=== PATIENT | female | born 1980 | race Caucasian/White ===

== ENCOUNTER 2016-10-11 12:28 | Emergency (ER) | payer MEDICAID ==
[~2016-10-11] VITALS: Wt 52.0 kg
[~2016-10-11 12:28] MED LIST: BUTA1CAP39 PO; CALC-67 PO; CEPH-443 PO; DICL50TA11 PO; FERR-55 PO; HYDR-3498 PO; MECL25TA2 PO; NAPR-260 PO; ONDA4TAB8 PO; PREN1TAB13 PO
[2016-10-11] MEDS ORDERED: SOD CHLORIDE 0.9% 1,000 ML IV STA (13:14)
[2016-10-11] MEDS ORDERED: ONDANSETRON 4 MG INJ IV STA (13:14)
[2016-10-11 13:36] LABS: URINE BLOOD (Dip) POC Trace-intact (NEGATIVE)
[2016-10-11] MEDS ORDERED: ONDA4TAB14 PO (13:47)
[2016-10-11] MEDS ORDERED: ACET325T33 PO (13:47)
--- NOTE | 2016-10-11 14:03 | ERD ---
ER Documentation Chief Complaint Date/Time DATE: 10/11/16 TIME: 13:56 Chief Complaint VOMITING ALL MORNING. NO AP NOW. HEADACHE WELL NO TRAUMA HPI This is a 35-year-old female with a history of migraines presenting to the emergency room complaining of headache and a few episodes of vomiting since this morning. Patient denies any abdominal pain. Patient denies any diarrhea. She denies any lethargy, vision changes. Patient describes the headache as frontal rating it moderate in severity. Patient states that she took sumatriptan at 830 this morning however she vomited the medication ROS All systems reviewed and are negative except as per history of present illness. Medications Home Meds Active Scripts Ondansetron (Ondansetron Odt) 4 Mg Tab.rapdis, 4 MG PO Q6H Y for NAUSEA AND/OR VOMITING, #20 TAB Prov:EDY GALVEZ PA-C 10/11/16 Acetaminophen* (Tylenol*) 325 Mg Tablet, 650 MG PO Q4H Y for MILD PAIN LEVEL 1-3 , #20 TAB Prov:EDY GALVEZ PA-C 10/11/16 Qiwlbwoezedky-Mmspsrmfwn-Fkqkzrez-Codeine* (Fioricet w/ Codeine*) [id number] 30MG Capsule, 1 CAP PO Q6H Y for PAIN LEVEL 1-5, #20 CAP Prov:MILLICENT WADE NP 06/22/16 Cephalexin* (Keflex*) 500 Mg Capsule, 500 MG PO QID for 7 Days, CAP Prov:DK DUEÑAS PA-C 04/22/16 Naproxen* (Naprosyn*) 500 Mg Tablet, 500 MG PO BID Y for PAIN AND/OR INFLAMMATION, #30 TAB Prov:DK DUEÑAS PA-C 02/16/16 Diclofenac Sodium* (Diclofenac Sodium*) 50 Mg Tablet.dr, 50 MG PO BID, #20 TAB Prov:GABRIEL HUYNH NP 12/21/15 Hydrocodone Bit-Acetaminophen* ([place]*) 5-325 Mg Tab, 1 TAB PO Q6 Y for PAIN, # 7 TAB Prov:JOAN CORTES DO 10/16/15 Naproxen* (Naprosyn*) 500 Mg Tablet, 500 MG PO BID Y for PAIN AND/OR INFLAMMATION, #14 TAB Prov:JOAN CORTES DO 10/16/15 Ondansetron Hcl* (Zofran*) 4 Mg Tablet, 4 MG PO Q8H Y for NAUSEA AND/OR VOMITING , #6 TAB Prov:JOAN CORTES DO 10/16/15 Meclizine Hcl* (Antivert*) 25 Mg Tablet, 25 MG PO Q6H Y for dizziness, vertigo, #20 TAB Prov:JOAN CORTES DO 10/16/15 Reported Medications Ferrous Sulfate* (Ferrous Sulfate*) 325 Mg Tablet, 325 MG PO DAILY, TAB 05/15/15 Calcium Carbonate/Vitamin D3* (Os-Ashutosh 500+D*) 1 Tab Tablet, 1 TAB PO DAILY, TAB 05/15/15 Vit-Iron Fumarate-FA ( Vitamins Tablet) 1 Tab Tablet, 1 TAB PO DAILY, TAB 02/24/15 Allergies Allergies: Coded Allergies: No Known Drug Allergies (Verified Allergy, Unknown, 02/16/16) PMhx/Soc History of Surgery: Yes () Anesthesia Reaction: No Hx Neurological Disorder: Yes (MIGRAINES) Hx Respiratory Disorders: No Hx Cardiac Disorders: No Hx Psychiatric Problems: No Hx Miscellaneous Medical Probl: No Hx Alcohol Use: No Hx Substance Use: No Hx Tobacco Use: No Physical Exam Vitals Vital Signs Date Time Temp Pulse Resp B/P Pulse Ox O2 Delivery O2 Flow Rate FiO2 10/11/16 12:43 98.6 82 20 104/57 100 Physical Exam GENERAL: well-developed/well-nourished, in no apparent distress, non-toxic appearing HENT: NC/AT, moist mucous membranes EYES: Conjunctiva normal NECK: Supple, no lymphadenopathy PULM: CTA bilaterally, no rales, rhonchi, or wheezing heard CV: Normal S1S2, RRR, good capillary refill GI: Soft, non-distended, non-tender to palpation Normal bowel sounds, no masses or organomegaly felt on exam No gross peritonitis, no bruits Negative Rovsing, negative Gonzales, negative McBurney's point, Negative CVAT BACK: No masses EXT: No clubbing, cyanosis, or edema NEURO: Alert and Orientated. Cranial nerves II to XII intact, normal gait and coronation SKIN: Intact, normal turgor PSYCH: Normal mood and mentation Results 24 hrs Laboratory Tests Test 10/11/16 13:38 Bedside Urine Blood Trace-intact Bedside Urine Glucose (UA) Negative Bedside Urine Ketones (LAB) 2+ Bedside Urine Leukocyte Esterase (L 1+ Bedside Urine Nitrite (LAB) Negative Bedside Urine Protein (LAB) 1+ Bedside Urine pH (LAB) 8.5 Current Medications Medications (Trade) Dose Ordered Sig/Anum Route PRN Reason Start Time Stop Time Status Last Admin Dose Admin Sodium Chloride (NS) 1,000 ml @ 1,000 mls/hr Q1H STAT IV 10/11/16 13:14 10/11/16 14:13 10/11/16 13:36 Ondansetron HCl (Zofran Inj) 4 mg ONCE STAT IV 10/11/16 13:14 10/11/16 13:16 DC 10/11/16 13:35 Procedures/MDM This is a 35-year-old female presenting to the emergency room complaining of a headache and vomiting since this morning. My differentials include but not limited to migraines, viral syndrome, Other differentials included tension, migraine, and cluster headache, overuse medication headache, subarachnoid hemorrhage, meningitis, stroke. IV access was established, patient was given Benadryl 1 L fluids and Zofran. Pain relief was given in the ED with some improvement. Neurology exam was normal and I don' t recommend a CT scan at this time. Patient did not have any abdominal exam, she was ambulating well and appears well. She is afebrile and has stable vital signs. she is hemodynamically stable and neurovascularly intact. Prescriptions were given. Discussed to follow up with a primary care physician in the next couple days. Return to the ER if condition worsens or not improving as expected. Patient agreed and understood this plan. Departure Diagnosis: Primary Impression: Vomiting Vomiting type: unspecified Vomiting Intractability: intractable Nausea presence: without nausea Qualified Code: R11.11 - Intractable vomiting without nausea, unspecified vomiting type Additional Impression: Headache Headache type: unspecified Headache chronicity pattern: acute headache Intractability: intractable Qualified Code: R51 - Acute intractable headache , unspecified headache type Condition: Stable Patient Instructions: Self-Care for Headaches, Diet, Vomiting Or Diarrhea [6Yr- Adult], Vomiting And Diarrhea, Nonspecific (Adult) Referrals: [facility] Usted se sweet hecho un examen mdico de control que le indica que no est en lauren condicin que requiera tratamiento urgente en el Departamento de Emergencia. Un estudio ms profundo y el tratamiento de jordan condicin pueden esperar sin ningn riesgo hasta que usted sea atendida/o en el consultorio de jordan mdico o lauren cl karol. Es responsabilidad suya arreglar lauren rober para el seguimiento del stephanie. MANEJO DE CONDICIONES NO URGENTES EN EL FUTURO 1) Si usted tiene un mdico de atencin primaria: Usted debera llamar a jordan mdico de atencin primaria antes de venir al departamento de emergencia. Despus de las horas de consultorio, jordan doctor o jordan asociado/a est disponible por telfono. El mdico o enfermero de erika en el servicio telefnico puede asesorarle por clay medio para atender el problema, o stephanie contrario se puede programar lauren rober. 2) Si usted no tiene un mdico de atencin primaria: Llame al mdico o clnica de referencia que aparece abajo chantale las horas de consultorio para hacer lauren rober para que le vean. CLINICAS: [facility] [phone] [facility] [phone] [facility] [phone] [address] [facility] [facility] [phone] [address] [facility] [place] [id number] [phone] [facility]. [phone] [address] Additional Instructions: Visite a jordan mdico maana para un EXAMEN.Regrese a estas instalaciones si no se mejora tamiko esperbamos o tamiko le dijimos. Bogata toda la medicina alice y tamiko se le indic. Regrese a estas instalaciones si no se mejora tamiko esperbamos o tamiko le dijimos. EDY GALVEZ PA-C Oct 11, 2016 14:03
[2016-10-11 14:35] VITALS: BP 93/52; PULSE 83; RESP 16; TEMP 98.1
== END 2016-10-11 14:37 | disposition home or self-care (01) ==
LOC: FTE 12:28
DX: R11.11 Vomiting without nausea (principal); R51 Headache
CPT/HCPCS: 36415; 81003; 96361; 96374; J2405; J7030; Z7502

== ENCOUNTER 2017-01-08 21:05 | Emergency (ER) | payer MEDICAID ==
[~2017-01-08] VITALS: Wt 54.0 kg
[~2017-01-08 21:05] MED LIST changes: +ACET325T33 PO; +ONDA4TAB14 PO
[2017-01-08] MEDS ORDERED: ONDANSETRON (ODT) 4 MG TAB ODT STA (23:23)
[2017-01-08] MEDS ORDERED: HYDROCODONE/APAP (5/325) TAB PO ONE (23:30)
[2017-01-08 23:42] LABS: URINE BLOOD (Dip) POC Trace-intact (NEGATIVE)
[2017-01-08 23:50] LABS: ADD SCAN DIFF NO
[2017-01-08 23:52] LABS: BASOPHIL # 0.1 10^3/ul (0.0-0.1); BASOPHILS % 0.7 % (0.0-2.0); EOSINOPHILS # 0.3 10^3/ul (0.0-0.5); EOSINOPHILS % 3.1 % (0.0-7.0); HEMATOCRIT 39.6 % (37.0-47.0); HEMOGLOBIN 13.2 g/dl (12.0-16.0); LYMPHOCYTES # 3.4 10^3/ul (0.8-2.9); LYMPHOCYTES % 39.5 % (15.0-51.0); MEAN CORPUSCULAR HEMOGLOBIN 30.8 pg (29.0-33.0); MEAN CORPUSCULAR HGB CONC 33.3 g/dl (32.0-37.0); MEAN CORPUSCULAR VOLUME 92.5 fl (82.0-101.0); MONOCYTE # 0.6 10^3/ul (0.3-0.9); MONOCYTES % 7.2 % (0.0-11.0); NEUTROPHIL # 4.2 10^3/ul (1.6-7.5); NEUTROPHILS % 48.8 % (39.0-77.0); PLATELET COUNT 268 10^3/UL (140-415); RED BLOOD COUNT 4.28 10^6/ul (4.20-5.40); RED CELL DISTRIBUTION WIDTH 12.7 % (11.5-14.5); WHITE BLOOD COUNT 8.7 10^3/ul (4.8-10.8)
[2017-01-09 00:10] LABS: ALBUMIN 4.4 g/dl (3.3-4.9); ALBUMIN/GLOBULIN RATIO 1.37; CALCIUM 9.2 mg/dl (8.4-10.2); CREATININE 0.6 mg/dl (0.44-1.00); POTASSIUM 3.9 mmol/L (3.5-5.1); TOTAL PROTEIN 7.6 g/dl (6.1-8.1)
[2017-01-09 00:18] LABS: ADD UMIC NO; URINE BILIRUBIN (Dip) NEGATIVE (NEGATIVE); URINE BLOOD (Dip) NEGATIVE (NEGATIVE); URINE COLOR LT. YELLOW (YELLOW); URINE GLUCOSE (Dip) NEGATIVE (NEGATIVE); URINE KETONES (Dip) NEGATIVE (NEGATIVE); URINE LEUKOCYTE ESTERASE (Dip) NEGATIVE (NEGATIVE); URINE NITRITE (Dip) NEGATIVE (NEGATIVE); URINE TOTAL PROTEIN (Dip) NEGATIVE (NEGATIVE); URINE UROBILINOGEN (Dip) 0.2 E.U./dL (0.1-1.0)
--- NOTE | 2017-01-09 00:30 | RADRPT ---
PROCEDURE: US right upper quadrant CLINICAL INDICATION: Abdominal pain TECHNIQUE: Multiple real-time images were acquired of the patient's right upper abdomen utilizing a high resolution transducer. COMPARISON: None available FINDINGS: Liver: Normal in size, contour and echogenicity. Normal directional blood flow is seen within the p atent main portal vein. The maximum dimension estimated at 15.3 cm . Gallbladder: Normal. No sonographic Ognzales's sign is reported. Common bile duct: Normal; 4.4 mm. There is no evidence for choledocholithiasis. Right Kidney: Normal; maximum length measured at approximately 10 cm. Pancreas: Visualized portions are normal. The tail is partially obscured by bowel gas. RPTAT:HJJR IMPRESSION: Normal right upper quadrant ultrasound. Physician Paola Date Time Electronically viewed and signed by Physician Paola on 01/09/2017 00:29 /
[2017-01-09] MEDS ORDERED: ONDA4TAB14 PO (01:01)
[2017-01-09] MEDS ORDERED: HYDR-906 PO (01:01)
[2017-01-09] MEDS ORDERED: IBUP-1542 PO (01:02)
--- NOTE | 2017-01-09 01:04 | ERD ---
ER Documentation Chief Complaint Date/Time DATE: 01/09/17 TIME: 01:03 Chief Complaint RUQ pain HPI This is a 36-year-old female who presents with right upper quadrant pain for the past 3 days. It is worse after eating. Denies fever. Admits to nausea but no vomiting. No diarrhea. No dysuria hematuria or frequency. Has not taken any medication for pain. ROS All systems reviewed and are negative except as per history of present illness. Medications Home Meds Active Scripts Ibuprofen* (Motrin*) 600 Mg Tab, 600 MG PO Q6H Y for PAIN AND OR ELEVATED TEMP, #30 TAB Prov:UMAIR PEREZ PA-C 01/09/17 Hydrocodone/Acetaminophen ([place] 5-325 Tablet) 1 Each Tablet, 1 EACH PO Q6, #20 TAB Prov:UMAIR PEREZ PA-C 01/09/17 Ondansetron (Ondansetron Odt) 4 Mg Tab.rapdis, 4 MG PO Q6H Y for NAUSEA AND/OR VOMITING, #10 TAB Prov:UMAIR PEREZ PA-C 01/09/17 Ondansetron (Ondansetron Odt) 4 Mg Tab.rapdis, 4 MG PO Q6H Y for NAUSEA AND/OR VOMITING, #20 TAB Prov:EDY GALVEZ PA-C 10/11/16 Acetaminophen* (Tylenol*) 325 Mg Tablet, 650 MG PO Q4H Y for MILD PAIN LEVEL 1-3 , #20 TAB Prov:EDY GALVEZ PA-C 10/11/16 Mqphcasaagaaf-Bfqnbcijyc-Gsgfdrne-Codeine* (Fioricet w/ Codeine*) [id number]- 30MG Capsule, 1 CAP PO Q6H Y for PAIN LEVEL 1-5, #20 CAP Prov:MILLICENT WADE NP 06/22/16 Cephalexin* (Keflex*) 500 Mg Capsule, 500 MG PO QID for 7 Days, CAP Prov:DK DUEÑAS PA-C 04/22/16 Naproxen* (Naprosyn*) 500 Mg Tablet, 500 MG PO BID Y for PAIN AND/OR INFLAMMATION, #30 TAB Prov:DK DUEÑAS PA-C 02/16/16 Diclofenac Sodium* (Diclofenac Sodium*) 50 Mg Tablet.dr, 50 MG PO BID, #20 TAB Prov:GABRIEL HUYNH IKika SNOW TECHNICIAN 12/21/15 Hydrocodone Bit-Acetaminophen* ([place]*) 5-325 Mg Tab, 1 TAB PO Q6 Y for PAIN, # 7 TAB Prov:JOAN CORTES DO 10/16/15 Naproxen* (Naprosyn*) 500 Mg Tablet, 500 MG PO BID Y for PAIN AND/OR INFLAMMATION, #14 TAB Prov:SOPHIAJOAN JURADO 10/16/15 Ondansetron Hcl* (Zofran*) 4 Mg Tablet, 4 MG PO Q8H Y for NAUSEA AND/OR VOMITING , #6 TAB Prov:SOPHIA,[facility] 10/16/15 Meclizine Hcl* (Antivert*) 25 Mg Tablet, 25 MG PO Q6H Y for dizziness, vertigo, #20 TAB Prov:JOAN CORTES 10/16/15 Reported Medications Ferrous Sulfate* (Ferrous Sulfate*) 325 Mg Tablet, 325 MG PO DAILY, TAB 05/15/15 Calcium Carbonate/Vitamin D3* (Os-Ashutosh 500+D*) 1 Tab Tablet, 1 TAB PO DAILY, TAB 05/15/15 Vit-Iron Fumarate-FA ( Vitamins Tablet) 1 Tab Tablet, 1 TAB PO DAILY, TAB 02/24/15 Allergies Allergies: Coded Allergies: No Known Drug Allergies (Verified Allergy, Unknown, 02/16/16) PMhx/Soc History of Surgery: Yes () Anesthesia Reaction: No Hx Neurological Disorder: Yes (MIGRAINES) Hx Respiratory Disorders: No Hx Cardiac Disorders: No Hx Psychiatric Problems: No Hx Miscellaneous Medical Probl: No Hx Alcohol Use: No Hx Substance Use: No Hx Tobacco Use: No Smoking Status: Never smoker FmHx Family History: No diabetes Physical Exam Vitals Vital Signs Date Time Temp Pulse Resp B/P Pulse Ox O2 Delivery O2 Flow Rate FiO2 01/08/17 21:30 98.7 84 20 110/75 100 Physical Exam General: well developed, well nourished, alert, nontoxic, no distress Head: normocephalic, atraumatic Neck: Supple, nontender, no lymphadenopathy, no midline tenderness Oropharynx: no tonsilar erythema or edema, uvula midline, no exudates, no kissing tonsils, no drooling Respiratory: Clear to auscaultation bilaterally, speaks in full sentences, no use of accesory muscles or labored breathing, no rales, ronchi, or wheezing Cardiovascular: RRR, No murmurs GI: soft, non tender, non distended, negative murphys sign, negative mcburneys point tenderness, no cva tenderness bilaterally, no rebound or guarding Back: no midline tenderness, no step offs or bony abnormalities, sensation to light touch in tact Result Diagram: 01/08/177 01/08/17 2337 Results 24 hrs Laboratory Tests Test 01/08/17 23:32 01/08/17 23:37 01/08/17 23:44 Urine Color LT. YELLOW Urine Clarity CLEAR Urine pH 8.5 Urine Specific [place] 1.010 Urine Ketones NEGATIVE Urine Nitrite NEGATIVE Urine Bilirubin NEGATIVE Urine Urobilinogen 0.2 E.U./dL Urine Leukocyte Esterase NEGATIVE Urine Hemoglobin NEGATIVE Urine Glucose NEGATIVE% Urine Total Protein NEGATIVE White Blood Count 8.710^3/ul Red Blood Count 4.2810^6/ul Hemoglobin 13.2g/dl Hematocrit 39.6% Mean Corpuscular Volume 92.5fl Mean Corpuscular Hemoglobin 30.8pg Mean Corpuscular Hemoglobin Concent 33.3g/dl Red Cell Distribution Width 12.7% Platelet Count 89143^3/UL Mean Platelet Volume 11.0fl Neutrophils % 48.8% Lymphocytes % 39.5% Monocytes % 7.2% Eosinophils % 3.1% Basophils % 0.7% Nucleated Red Blood Cells % 0.0/100WBC Neutrophils # 4.210^3/ul Lymphocytes # 3.410^3/ul Monocytes # 0.610^3/ul Eosinophils # 0.310^3/ul Basophils # 0.110^3/ul Nucleated Red Blood Cells # 0.010^3/ul Sodium Level 138mmol/L Potassium Level 3.9mmol/L Chloride Level 101mmol/L Carbon Dioxide Level 29mmol/L Anion Gap 12 Blood Urea Nitrogen 10mg/dl Creatinine 0.60mg/dl Glucose Level 101mg/dl Calcium Level 9.2mg/dl Total Bilirubin 0.0mg/dl Direct Bilirubin 0.00mg/dl Indirect Bilirubin 0.0mg/dl Aspartate Amino Transf (AST/SGOT) 39IU/L Alanine Aminotransferase (ALT/SGPT) 77IU/L Alkaline Phosphatase 106IU/L Total Protein 7.6g/dl Albumin 4.4g/dl Globulin 3.20g/dl Albumin/Globulin Ratio 1.37 Lipase 176U/L Bedside Urine pH (LAB) 8.5 Bedside Urine Protein (LAB) 1+ Bedside Urine Glucose (UA) Negative Bedside Urine Ketones (LAB) Negative Bedside Urine Blood Trace-intact Bedside Urine Nitrite (LAB) Negative Bedside Urine Leukocyte Esterase (L Negative Current Medications Medications (Trade) Dose Ordered Sig/Anum Route PRN Reason Start Time Stop Time Status Last Admin Dose Admin Ondansetron HCl (Zofran Odt) 4 mg ONCE STAT ODT 01/08/17 23:23 01/08/17 23:25 DC 01/08/17 23:34 Acetaminophen/ Hydrocodone Bitart ([place] (5/325)) 1 tab ONCE ONCE PO 01/08/17 23:30 01/08/17 23:31 DC 01/08/17 23:34 Procedures/MDM Patient presents with right upper quadrant pain. Vital signs are normal. She has no tenderness throughout the right upper quadrant or throughout the appendix. She has no CVA tenderness. All of her labs were normal and ultrasound of the right upper quadrant was unremarkable. Patient is discharged with Zofran, ibuprofen, and a small amount of [place]. Recommended this patient follow up with her primary care doctor within 48 hours or return to the emergency room for any worsening of symptoms. However this time I do believe there is suitable for outpatient management. I answered all their questions and they agreed with the plan and were discharged home. Departure Diagnosis: Primary Impression: Abdominal pain Condition: Stable Patient Instructions: Abdominal Pain Additional Instructions: Call your primary care doctor TOMORROW for an appointment during the next 1-2 days.See the doctor sooner or return here if your condition worsens before your appointment time. UMAIR PEREZ PA-C January 09, 2017 01:04
== END 2017-01-09 01:52 | disposition home or self-care (01) ==
LOC: FTE 21:05
DX: R10.11 Right upper quadrant pain (principal); R11.0 Nausea
CPT/HCPCS: 36415; 76705; 80053; 81003; 83690; 85025; Z7502; Z7610

== ENCOUNTER 2017-05-01 00:22 | Emergency (ER) | payer MEDICAID ==
[~2017-05-01] VITALS: Ht 160 cm; Wt 45.5 kg
[~2017-05-01 00:22] MED LIST changes: +HYDR-906 PO; +IBUP-1542 PO
[2017-05-01 00:59] VITALS: Ht 160 cm; Wt 45.5 kg
[2017-05-01] MEDS ORDERED: ACETAMINOPHEN 500 MG TAB PO STA (04:00)
[2017-05-01] MEDS ORDERED: SOD CHLORIDE 0.9% 1,000 ML IV ONE (04:00)
[2017-05-01] MEDS ORDERED: METOCLOPRAMIDE 10 MG INJ IV ONE (04:00)
[2017-05-01] MEDS ORDERED: DIPHENHYDRAMINE 50 MG INJ IV ONE (04:00)
--- NOTE | 2017-05-01 04:12 | ERD ---
ER Documentation Chief Complaint Date/Time DATE: 05/01/17 TIME: 04:09 Chief Complaint HEADACHE X10 DAYS. 3 WEEKS , TYLENOL INEFFECTIVE -N/V HPI 36-year-old female presents in emergency department for complaints of headache for 10 days. Patient is 13 weeks , has history of migraine headaches, used to take sumatriptan when she was not . Patient has been taking Tylenol for the headache with only mild relief. Patient described the pain as throbbing pain, 6/10 scale, accompanied with a headache. Patient denies any head injury. Patient is a very vision or vomiting. Patient denies any numbness or tingling, changes in balance or memory. Patient denies any fever or chills. ROS All systems reviewed and are negative except as per history of present illness. Medications Home Meds Active Scripts Ibuprofen* (Motrin*) 600 Mg Tab, 600 MG PO Q6H Y for PAIN AND OR ELEVATED TEMP, #30 TAB Prov:UMAIR PEREZ PA-C 01/09/17 Hydrocodone/Acetaminophen ([place] 5-325 Tablet) 1 Each Tablet, 1 EACH PO Q6, #20 TAB Prov:UMAIR PEREZ PA-C 01/09/17 Ondansetron (Ondansetron Odt) 4 Mg Tab.rapdis, 4 MG PO Q6H Y for NAUSEA AND/OR VOMITING, #10 TAB Prov:UMAIR PEREZ PA-C 01/09/17 Ondansetron (Ondansetron Odt) 4 Mg Tab.rapdis, 4 MG PO Q6H Y for NAUSEA AND/OR VOMITING, #20 TAB Prov:EDY GALVEZ PA-C 10/11/16 Acetaminophen* (Tylenol*) 325 Mg Tablet, 650 MG PO Q4H Y for MILD PAIN LEVEL 1-3 , #20 TAB Prov:EDY GALVEZ PA-C 10/11/16 Aqkrugivwhbal-Qimeswgjdt-Lllojwwp-Codeine* (Fioricet w/ Codeine*) [id number] 30MG Capsule, 1 CAP PO Q6H Y for PAIN LEVEL 1-5, #20 CAP Prov:MILLICENT WADE NP 06/22/16 Cephalexin* (Keflex*) 500 Mg Capsule, 500 MG PO QID for 7 Days, CAP Prov:PROUSE,DK M. PA-C 04/22/16 Naproxen* (Naprosyn*) 500 Mg Tablet, 500 MG PO BID Y for PAIN AND/OR INFLAMMATION, #30 TAB Prov:DK DUEÑAS PA-C 02/16/16 Diclofenac Sodium* (Diclofenac Sodium*) 50 Mg Tablet.dr, 50 MG PO BID, #20 TAB Prov:GABRIEL HUYNH NP 12/21/15 Hydrocodone Bit-Acetaminophen* ([place]*) 5-325 Mg Tab, 1 TAB PO Q6 Y for PAIN, # 7 TAB Prov:JOAN CORTES DO 10/16/15 Naproxen* (Naprosyn*) 500 Mg Tablet, 500 MG PO BID Y for PAIN AND/OR INFLAMMATION, #14 TAB Prov:SOPHIAJOAN DO 10/16/15 Ondansetron Hcl* (Zofran*) 4 Mg Tablet, 4 MG PO Q8H Y for NAUSEA AND/OR VOMITING , #6 TAB Prov:SOPHIA,JOAN DO 10/16/15 Meclizine Hcl* (Antivert*) 25 Mg Tablet, 25 MG PO Q6H Y for dizziness, vertigo, #20 TAB Prov:JOAN CORTES DO 10/16/15 Reported Medications Ferrous Sulfate* (Ferrous Sulfate*) 325 Mg Tablet, 325 MG PO DAILY, TAB 05/15/15 Calcium Carbonate/Vitamin D3* (Os-Ashutosh 500+D*) 1 Tab Tablet, 1 TAB PO DAILY, TAB 05/15/15 Vit-Iron Fumarate-FA ( Vitamins Tablet) 1 Tab Tablet, 1 TAB PO DAILY, TAB 02/24/15 Allergies Allergies: Coded Allergies: No Known Drug Allergies (Verified Allergy, Unknown, 05/01/17) PMhx/Soc History of Surgery: Yes () Anesthesia Reaction: No Hx Neurological Disorder: Yes (MIGRAINES) Hx Respiratory Disorders: No Hx Cardiac Disorders: No Hx Psychiatric Problems: No Hx Miscellaneous Medical Probl: No Hx Alcohol Use: No Hx Substance Use: No Hx Tobacco Use: No Smoking Status: Never smoker FmHx Family History: No coronary disease, No diabetes, No other Physical Exam Vitals Vital Signs Date Time Temp Pulse Resp B/P Pulse Ox O2 Delivery O2 Flow Rate FiO2 05/01/17 00:59 99.1 87 20 106/63 100 Physical Exam GENERAL: The patient is well developed and appropriate for usual state of health, in no apparent distress. CHEST: Clear to auscultation bilaterally. There are no rales, wheezes or rhonchi. HEART: Regular rate and rhythm. No murmurs, clicks, rubs or gallops. No S3 or S4. ABDOMEN: Soft, nontender and nondistended. Good bowel sounds. No rebound or guarding. No gross peritonitis. No gross organomegaly or masses. No Gonzales sign or McBurney point tenderness. BACK: No midline or flank tenderness. EXTREMITIES: Equal pulses bilaterally. There is no peripheral clubbing, cyanosis or edema. No focal swelling or erythema. Full range of motion. Grossly neurovascularly intact. NEURO: Alert and oriented. Cranial nerves 2-12 intact. Motor strength in all 4 extremities with 5/5 strength. Sensation grossly intact. Normal speech and gait. negative Romberg sign. Negative pronator drift. SKIN: There is no apparent rash or petechia. The skin is warm and dry. HEMATOLOGIC AND LYMPHATIC: There is no evidence of excessive bruising or lymphedema. No gross cervical, axillary, or inguinal lymphadenopathy. Results 24 hrs Current Medications Medications (Trade) Dose Ordered Sig/Anum Route PRN Reason Start Time Stop Time Status Last Admin Dose Admin Sodium Chloride (NS) 1,000 ml @ 1,000 mls/hr Q1H ONCE IV 05/01/17 04:00 05/01/17 04:59 Diphenhydramine HCl (Benadryl) 50 mg ONCE ONCE IV 05/01/17 04:00 05/01/17 04:01 DC Metoclopramide HCl (Reglan) 10 mg ONCE ONCE IV 05/01/17 04:00 05/01/17 04:01 DC Acetaminophen (Tylenol Tab) 500 mg ONCE STAT PO 05/01/17 04:00 05/01/17 04:01 DC Normal saline IV bolus was given here in emergency department for rehydration, patient tolerated IV fluids.IV Benadryl IV Reglan and Tylenol was given here in emergency department to help with possible migraine control.Verbalized feeling much better afterwards. Procedures/MDM Medical Decision Making: Patient symptoms are consistent with migraine headache , possible tension headache. There is low suspicion for neurological emergencies at this time since patients neurologic exam is normal. Patient did not have any altered level consciousness, vomiting, changes in balance or memory and did not have any head injury. Rx: Reglan, Benadryl,Tylenol Dispostion: Home. Stable Departure Diagnosis: Primary Impression: Headache Headache type: unspecified Headache chronicity pattern: acute headache Intractability: not intractable Qualified Code: R51 - Acute nonintractable headache, unspecified headache type Condition: Stable Patient Instructions: Self-Care for Headaches MILLICENT WADE NP May 01, 2017 04:12
[2017-05-01] MEDS ORDERED: METO10TA92 PO (04:13)
[2017-05-01] MEDS ORDERED: BEN50 PO (04:13)
[2017-05-01] MEDS ORDERED: ACET500C5 PO (04:13)
== END 2017-05-01 05:23 | disposition home or self-care (01) ==
LOC: FTE 00:22
DX: O99.89 Other specified diseases and conditions complicating pregnancy, childbirth and the puerperium (principal); R51 Headache; Z3A.00 Weeks of gestation of pregnancy not specified
CPT/HCPCS: 96374; 96375; J1200; J2765; J7030; Z7502; Z7610

== ENCOUNTER 2017-08-12 09:39 | Outpatient (CLI) | END 2017-08-12 13:10 | disposition home or self-care (01) ==

== ENCOUNTER 2017-09-22 14:26 | Outpatient (CLI) | END 2017-09-22 17:57 | disposition home or self-care (01) ==

== ENCOUNTER 2017-09-22 18:08 | Emergency (ER) | END 2017-09-22 20:54 | disposition home or self-care (01) ==

== ENCOUNTER 2017-10-24 15:10 | Inpatient (IN) | END 2017-10-27 18:35 | disposition home or self-care (01) | DRG 766 ==

== ENCOUNTER 2018-03-25 13:24 | Emergency (ER) | END 2018-03-25 17:30 | disposition home or self-care (01) ==

== ENCOUNTER 2019-03-31 06:48 | Emergency (ER) | payer MEDICAID ==
[~2019-03-31] VITALS: Ht 154.9 cm; Wt 55.7 kg
[~2019-03-31 06:48] MED LIST changes: -ACET325T33 PO; +BEN25 PO; +BUTA1CAP38 PO; -BUTA1CAP39 PO; -CEPH-443 PO; +DIAZ5TAB PO; -DICL50TA11 PO; -HYDR-3498 PO; -HYDR-906 PO; -MECL25TA2 PO; -NAPR-260 PO; -ONDA4TAB14 PO; -ONDA4TAB8 PO; +OSEL75CA23 PO; +PROC10TA10 PO
[2019-03-31 06:51] VITALS: BP 116/70; PULSE 76; RESP 18; Ht 154.9 cm; Wt 55.7 kg
[2019-03-31] MEDS ORDERED: KETOROLAC 30 MG INJ IM STA (07:15)
[2019-03-31] MEDS ORDERED: KETOROLAC 30 MG INJ IV STA (07:26)
--- NOTE | 2019-03-31 07:26 | ERD ---
ER Documentation Chief Complaint Chief Complaint headache and eye pain x20 days HPI 38-year-old female with past medical history of chronic headache who presents with complaint of headache over the past 20 days. Describes headache as a bitemporal type headache with worsening tension to neck and upper shoulders. He adache radiates to the front of head. States she thinks she has mixed migraine and tension type headaches. States she saw a clinic physician not too long ago and referred for some type of physical therapy. She otherwise denies fevers, chills, nausea, vomiting, abdominal pain, blurry vision, double vision, pain with eye movement, headache of her life. Has tried some idjv-phf-bctpixd medications without much help in her symptoms. She otherwise without complaint. ROS All systems reviewed and are negative except as per history of present illness. Medications Home Meds Active Scripts Ibuprofen* (Motrin*) 600 Mg Tab, 600 MG PO Q6, #30 TAB Prov:LUIS ANTONIO PAN PA-C 03/31/19 Aksyzpwzsr-Dydlwkomodtmu-Lhysuojo* (Fioricet*) 50-300-40 Mg Capsule, 1 CAP PO Q4H PRN for HEADACHE for 14 Days, CAP Prov:LUIS ANTONIO PAN PA-C 03/31/19 Diphenhydramine Hcl* (Benadryl*) 25 Mg Cap, 25 MG PO Q6, #30 CAP Prov:LUIS ANTONIO PAN PA-C 03/31/19 Diazepam* (Valium*) 5 Mg Tablet, 5 MG PO Q8 for muscle tension , #10 TAB Prov:LUIS ANTONIO PAN PA-C 03/31/19 Ibuprofen* (Ibuprofen*) 600 Mg Tablet, 600 MG PO Q6H PRN for HEADACHE, #30 TAB Prov:JEROMY WHITESIDE DO 03/25/18 Prochlorperazine* (Prochlorperazine*) 10 Mg Tablet, 10 MG PO Q6 PRN for NAUSEA AND/OR VOMITING, #20 TAB Prov:JEROMY WHITESIDE DO 03/25/18 Oseltamivir Phosphate* (Tamiflu*) 75 Mg Capsule, 75 MG PO BID for 5 Days, CAP Prov:JEROMY JOSEPH PA-C 09/22/17 Reported Medications Ferrous Sulfate* (Ferrous Sulfate*) 325 Mg Tablet, 325 MG PO DAILY, TAB 05/15/15 Calcium Carbonate/Vitamin D3* (Os-Ashutosh 500+D*) 1 Tab Tablet, 1 TAB PO DAILY, TAB 05/15/15 Vit-Iron Fumarate-FA ( Vitamins Tablet) 1 Tab Tablet, 1 TAB PO DAILY, TAB 02/24/15 Allergies Allergies: Coded Allergies: No Known Drug Allergies (Verified Allergy, Unknown, 03/31/19) PMhx/Soc Medical and Surgical Hx: pt denies Medical Hx, pt denies Surgical Hx History of Surgery: Yes () Anesthesia Reaction: No Hx Neurological Disorder: Yes (MIGRAINES) Hx Respiratory Disorders: No Hx Cardiac Disorders: No Hx Psychiatric Problems: No Hx Miscellaneous Medical Probl: No Hx Alcohol Use: No Hx Substance Use: No Hx Tobacco Use: No Smoking Status: Never smoker FmHx Family History: No diabetes, No coronary disease, No other Physical Exam Vitals Vital Signs Date Temp Pulse Resp B/P (MAP) Pulse Ox O2 O2 Flow FiO2 Time Delivery Rate 03/31/19 97.9 76 18 116/70 99 06:51 (85) Physical Exam Const: No acute distress Head: Atraumatic Eyes: Normal Conjunctiva ENT: Normal External Ears, Nose and Mouth. Neck: Full range of motion. No meningismus. Resp: Clear to auscultation bilaterally Cardio: Regular rate and rhythm, no murmurs Abd: Soft, non tender, non distended. Normal bowel sounds Skin: No petechiae or rashes Back: No midline or flank tenderness Ext: No cyanosis, or edema, tenderness to palpation to posterior neck and along sternocleidomastoid muscle. Neur: Awake and alert Psych: Normal Mood and Affect Results 24 hrs Laboratory Tests Test 03/31/19 07:30 POC Beta HCG, Qualitative NEGATIVE Current Medications Medications Dose Sig/Anum Start Time Status Last (Trade) Ordered Route PRN Stop Time Admin Dose Reason Admin Ketorolac 30 mg ONCE STAT 03/31/19 DC Tromethamine IM 07:15 03/31/19 (Toradol) 07:28 Diazepam 5 mg ONCE ONCE 03/31/19 DC (Valium) PO 07:30 03/31/19 07:30 10 mg ONCE ONCE 03/31/19 DC Metoclopramid PO 07:30 03/31/19 e HCl 07:30 (Reglan) Ketorolac 30 mg ONCE STAT 03/31/19 DC 03/31/19 Tromethamine IV 07:26 03/31/19 07:35 (Toradol) 07:28 50 mg ONCE ONCE 03/31/19 DC 03/31/19 Diphenhydrami IV 07:30 03/31/19 07:34 ne HCl 07:31 (Benadryl) 10 mg ONCE ONCE 03/31/19 DC 03/31/19 Metoclopramid IV 07:30 03/31/19 07:35 e HCl 07:31 (Reglan) Procedures/MDM This patient presents with a headache most consistent with Primary type headache . Differential diagnosis includes migraine versus tension type headache. No headache red flags. Neurologic exam without evidence of meningismus, focal neurologic findings. Presentation not consistent with acute intracranial bleed to include SAH (lack of risk factors, headache history). Presentation not consistent with acute [employer]IE[employer]AL[employer] TECH[employer]ICIAN infection to include meningitis or brain abscess, Temp oral arteritis unlikely, as is acute angle closure glaucoma given history and physical findings. Presentation not consistent with other acute, emergent causes of headache at this time. Plan to treat symptomatically with pain medication. No indication for imaging/LP at this time. Course: Valium for muscle tension, Toradol, Reglan, will discharge with headache cocktail medication regiment DISPOSITION PLAN: We discussed follow up with the patient's primary care doctor within 24 to 48 hours. Patient counseled regarding my diagnostic impression and care plan. Prior to discharge all questions answered. Pt agrees with treatment plan and understands strict return precautions. Precautionary instructions provided including instructions to return to the ER if not improving or for any worsening or changing symptoms or concerns. Disclaimer: Inadvertent spelling and grammatical errors are likely due to EHR/dictation software use and do not reflect on the overall quality of patient care. Also, please note that the electronic time recorded on this note does not necessarily reflect the actual time of the patient encounter. Departure Diagnosis: Primary Impression: Headache Condition: Stable Patient Instructions: Self-Care for Headaches Referrals: COMM[facility]ITY CLINICS YOU HAVE RECEIVED A MEDICAL SCREENING EXAM AND THE RESULTS INDICATE THAT YOU DO NOT HAVE A CONDITION THAT REQUIRES URGENT TREATMENT IN THE EMERGENCY DEPARTMENT. FURTHER EVALUATION AND TREATMENT OF YOUR CONDITION CAN WAIT UNTIL YOU ARE SEEN IN YOUR DOCTORS OFFICE WITHIN THE NEXT 1-2 DAYS. IT IS YOUR RESPONSIBILITY TO MAKE AN APPOINTMENT FOR FOLOW-UP CARE. IF YOU HAVE A PRIMARY DOCTOR --you should call your primary doctor and schedule an appointment IF YOU DO NOT HAVE A PRIMARY DOCTOR YOU CAN CALL OUR PHYSICIAN REFERRAL HOTLINE AT IF YOU CAN NOT AFFORD TO SEE A PHYSICIAN YOU CAN CHOSE FROM THE FOLLOWING FORMERLY [facility], [facility] [address] [facility] [address] [facility] [address] [facility] [address] [facility] [address] [facility]. [facility]. [address] Additional Instructions: Call your primary care doctor TOMORROW for an appointment during the next 2-3 days.See the doctor sooner or return here if your condition worsens before your appointment time. LUIS ANTONIO PAN PA-C Mar 31, 2019 07:26
[2019-03-31] MEDS ORDERED: DIPHENHYDRAMINE 50 MG INJ IV ONE (07:30)
[2019-03-31] MEDS ORDERED: METOCLOPRAMIDE 10 MG INJ IV ONE (07:30)
[2019-03-31] MEDS ORDERED: DIAZEPAM 5 MG TAB PO ONE (07:30)
[2019-03-31] MEDS ORDERED: METOCLOPRAMIDE 10 MG TAB PO ONE (07:30)
== END 2019-03-31 08:52 | disposition home or self-care (01) ==
LOC: FTE 06:48
DX: R51 Headache (principal)
CPT/HCPCS: 81025; 96374; 96375; J1200; J1885; J2765; Z7502